=== PATIENT | male | born 1985 ===

== ENCOUNTER 2021-07-07 09:34 | Outpatient (REF) | payer BC, SELFPAY ==
[2021-07-07 10:09] LABS: Binax Internal Control QC Valid; Binax Now Covid-19 Ag Positive (Negative); Binax Performed by: HO.BONILM
== END 2021-07-07 09:35 | disposition home or self-care (01) ==
LOC: HO.HMGCLDS 09:34
PROVIDERS: PCP Internal Medicine; Visit Provider Internal Medicine
DX: Z13.89 Encounter for screening for other disorder (principal)